=== PATIENT | female | born 2000 | race Caucasian/White ===

== ENCOUNTER 2024-09-08 14:44 | Outpatient (CLI) | payer OTHER, SELFPAY ==
--- NOTE | ~2024-09-08 | US_ITS ---
EXAMINATION: US OB transvaginal DATE: 09/08/2024 15:08 INDICATION: Gestational dating. TECHNIQUE: Real-time transabdominal and transvaginal obstetric ultrasound. FINDINGS: No prior studies for comparison. The uterus measures 9 x 5 x 5.4 cm. There is an intrauterine gestational sac, with pole identif ied. The crown rump length measures 2 cm, which correlates with a estimated gestational age of 8 wee ks 5 days. heart tones are identified measuring 178 BPM. Ovaries are not visualized. No free fluid in the pelvis. IMPRESSION: 1. SL IUP with an EGA of 8 weeks, 5 days (EDC by current ultrasound of 04/15/2025 ). Reviewed, dictated and finalized at location A. IMPRESSION: 1. SL IUP with an EGA of 8 weeks, 5 days (EDC by current ultrasound of 04/15/20 25 ).
== END 2024-09-08 14:45 | disposition home or self-care (01) ==
LOC: MICIMG 14:49
PROVIDERS: PCP Obstetrics & Gynecology Gynecology; Visit Provider Obstetrics & Gynecology Gynecology
DX: Z36.87 Encounter for antenatal screening for uncertain dates (principal)
CPT/HCPCS: 76817

== ENCOUNTER 2024-11-14 13:25 | Outpatient (CLI) | payer OTHER, SELFPAY ==
--- NOTE | ~2024-11-14 | US_ITS ---
EXAMINATION: US OB /maternal detail DATE: 11/14/2024 14:19 INDICATION: survey TECHNIQUE: Multiple obstetric sonographic images performed. FINDINGS: 09/08/2024 There is a single living fetus in breech presentation. The placenta is paracentral to the right dai uring 1.6 cm placenta previa. Amniotic fluid volume is subjectively normal cardiac activity and movement is noted with a heart rate of 153 beats per minute. The following anatomy was identified as normal: 4 chamber heart 3 vessel cord cord insertion kidneys urinary bladder stomach spine diaphragm ventricles cisterna magna cerebellum The following biometric data were obtained: BPD: 45mm corresponds to gestational age 19 weeks 4 days. Head circumference: 163 mm corresponds to gestational age 19 weeks 1 days. Abdominal circumference: 140 mm corresponds to gestational age 19 weeks 2 days. Femur length: 29 mm corresponds to gestational age 18 weeks 5 days. Head circumference to abdominal circumference ratio: 1.17 (normal range for expected gestational age is 1.09-1.26). Estimated weight: 274 grams +/- 41 grams using Hadlock method. IMPRESSION: 1: Single living intrauterine with an estimated gestational age of 18weeks 2days by initial ultrasound measurements, with an EDC of 04/15/2025 in breech presentation. 2. Normal survey. 3: Low-lying right paracentral placenta measuring 1.6 cm to the cervix. Reviewed, dictated and finalized at location A. IMPRESSION: 1: Single living intrauterine with an estimated gestational age of 18 weeks 2days by initial ultrasound measurements, with an EDC of 04/15/2025 in br eech presentation. 2. Normal survey. 3: Low-lying right paracentral placenta measuring 1.6 cm to the cervix.
== END 2024-11-14 13:26 | disposition home or self-care (01) ==
LOC: MICIMG 13:28
PROVIDERS: PCP Obstetrics & Gynecology Gynecology; Visit Provider Obstetrics & Gynecology Gynecology
DX: Z36.9 Encounter for antenatal screening, unspecified (principal)
CPT/HCPCS: 76805

== ENCOUNTER 2024-12-14 10:12 | Outpatient (CLI) | payer OTHER, SELFPAY ==
--- NOTE | ~2024-12-14 | US_ITS ---
EXAMINATION: US OB follow up DATE: 12/14/2024 11:07 INDICATION: Low-lying placenta during second trimester TECHNIQUE: Real-time ultrasound of the pelvis was performed. The interpreting radiologist was not present for the study. COMPARISON: None. FINDINGS: There is a single living fetus in vertex presentation. The placenta is on maternal right not low-lying with caudal margin 7.3 cm from the internal cervical os. heart rate is 145 beats per minute (bpm). The amniotic fluid volume is subjectively normal. The right ventricular and left ventricular o utflow tract views are nondiagnostic. IMPRESSION: 1. Single living fetus in vertex presentation with heart rate of 145 bpm. 2. Normal placenta on the maternal right which is not low-lying with caudal margin 7.3 cm from the internal cervical os. 3. Right and left ventricular outflow tract views are nondiagnostic. Reviewed, dictated and finalized at location A. IMPRESSION: 1. Single living fetus in vertex presentation with heart rate of 145 bpm. 2. Normal placenta on the maternal right which is not low-lying with caudal mar gin 7.3 cm from the internal cervical os. 3. Right and left ventricular outflow tract views are nondiagnostic.
== END 2024-12-14 10:13 | disposition home or self-care (01) ==
LOC: MICIMG 10:13
PROVIDERS: PCP Obstetrics & Gynecology Gynecology; Visit Provider Obstetrics & Gynecology Gynecology
DX: O44.42 Low lying placenta NOS or without hemorrhage, second trimester (principal)
CPT/HCPCS: 76816